=== PATIENT | male | born 1980 | race Caucasian/White ===

== ENCOUNTER 2017-11-14 17:35 | Emergency (ER) | END 2017-11-14 20:00 | disposition left against medical advice (07) ==

== ENCOUNTER 2017-11-14 23:29 | Emergency (ER) | END 2017-11-15 17:40 ==

== ENCOUNTER 2018-02-16 02:00 | Emergency (ER) | END 2018-02-16 02:15 | disposition left against medical advice (07) ==

== ENCOUNTER 2018-03-05 22:04 | Emergency (ER) | END 2018-03-06 18:53 | disposition home or self-care (01) ==

== ENCOUNTER 2018-09-01 17:09 | Emergency (ER) | END 2018-09-02 08:10 ==

== ENCOUNTER 2018-10-31 17:06 | Emergency (ER) | payer MEDICAID ==
[~2018-10-31] VITALS: Ht 162.6 cm; Wt 63.6 kg
[~2018-10-31 17:06] MED LIST: ARIP15TA3 PO
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
[2018-10-31 17:21] VITALS: Ht 162.6 cm; Wt 63.6 kg
[2018-10-31] MEDS ORDERED: FLUO20CA38 PO (17:35)
[2018-10-31] MEDS: DEXTROSE 5%-LR 1,000 ML IV SCH (18:38)
--- NOTE | 2018-10-31 18:54 | PSY ---
Date/Time of Note Date/Time of Note DATE: 10/31/18 TIME: 21:51 Psychiatric Subjective Eval Consent Pt consented to telemedicine: Yes Subjective Evaluation Patient location: emergency Chief Complaint: BIB RA 39: called 911 stating 'I want to harm myself'. History of present illness HPI: 38 yo male with ho etoh dependence as well as depression. Per nurse adn notes, pt called 911 stating Si and had been drinking, etoh level 445. In ED was very agitated and aggressive requiring IM meds and restraints due to severe agitation. attempted to speak with pt but he was too lethargic to speak. Past Psych Hx: unable to obtain due to lethargy PMHx: unable to obtain due to lethargy meds: unable to obtain due to lethargy All: unable to obtain due to lethargy MSE: lethargic, opens eyes but tries to sleep Imp: 38 yo male s/o suicidal statements and heavy etoh use, currently too lethargic for full exam for now recommend 5150 and further eval when he is able For moderate agitation Zyprexa 5mg po prn For severe agitation chlorpromazine 25mg im prn Alcohol withdrawal precautions with CIWA Daily thiamine 100mg po folate 1mg po mvi utox Medical history Problems Medical Problems: (1) Acute alcohol intoxication Status: Acute (2) Agitation Status: Acute (3) Alcohol abuse Status: Acute (4) Alcohol intoxication Status: Acute (5) Alcoholic intoxication Status: Acute (6) Depression Status: Acute (7) Laceration Status: Acute (8) Patient left after triage Status: Acute (9) Patient left without being seen Status: Acute (10) Patient left without being seen Status: Acute (11) Suicidal ideation Status: Acute (12) Suicidal ideation Status: Acute (13) Suicide threat or attempt Status: Acute Allergies: Coded Allergies: No Known Allergy (Unverified , 10/31/18) Psychiatric Objective Eval Mental Status Examination: Laboratory Results Laboratory Tests Test 10/31/18 17:31 White Blood Count 8.3 10^3/ul Red Blood Count 5.21 10^6/ul Hemoglobin 15.6 g/dl Hematocrit 46.7 % Mean Corpuscular Volume 89.6 fl Mean Corpuscular Hemoglobin 29.9 pg Mean Corpuscular Hemoglobin Concent 33.4 g/dl Red Cell Distribution Width 12.0 % Platelet Count 360 10^3/UL Mean Platelet Volume 9.1 fl Immature Granulocytes % 0.400 % Neutrophils % % Segmented Neutrophils % (Manual) 21 % Lymphocytes % % Lymphocytes % (Manual) 66 % Reactive Lymphocytes % (Manual) 2 % Monocytes % % Monocytes % (Manual) 4 % Eosinophils % % Eosinophils % (Manual) 2 % Basophils % % Basophils % (Manual) 2 % Metamyelocytes % (manual) 2 % Myelocytes % (Manual) 1 % Nucleated Red Blood Cells % 0.0 /100WBC Immature Granulocytes # 0.030 10^3/ul Neutrophils # 10^3/ul Lymphocytes (Manual) 5.4 10^3/ul Lymphocytes # 10^3/ul Reactive Lymphocytes # 0.1 10^3/ul Monocytes # 10^3/ul Monocytes # (Manual) 0.3 10^3/ul Eosinophils # 10^3/ul Basophils # 10^3/ul Basophils # (Manual) 0.1 10^3/ul Metamyelocytes # 0.1 10^3/ul Myelocytes # 0.0 10^3/ul Nucleated Red Blood Cells # 10^3/ul Platelet Estimate NORMAL Giant Platelets 1 % Sodium Level 145 mmol/L Potassium Level 3.8 mmol/L Chloride Level 106 mmol/L Carbon Dioxide Level 21 mmol/L Anion Gap 18 Blood Urea Nitrogen 15 mg/dl Creatinine 0.97 mg/dl Est Glomerular Filtrat Rate mL/min > 60 mL/min Glucose Level 101 mg/dl Calcium Level 9.2 mg/dl Total Bilirubin 0.2 mg/dl Direct Bilirubin 0.00 mg/dl Indirect Bilirubin 0.2 mg/dl Aspartate Amino Transf (AST/SGOT) 47 IU/L Alanine Aminotransferase (ALT/SGPT) 26 IU/L Alkaline Phosphatase 143 IU/L Total Protein 9.1 g/dl Albumin 5.0 g/dl Globulin 4.10 g/dl Albumin/Globulin Ratio 1.21 Salicylates Level < 1.0 mg/dl Acetaminophen Level < 10.0 ug/ml Ethyl Alcohol Level 445.0 mg/dl Assessment and Plan Recommendation/Plan Multiple antipsychotics: No Discharge Disposition: Other (Other) Legal Status: Place involuntary hold MADELINJANICE VALADEZ Oct 31, 2018 18:54
[2018-10-31] MEDS ORDERED: HALOPERIDOL 5 MG INJ IM ONE (19:00)
[2018-10-31] MEDS ORDERED: DIPHENHYDRAMINE 50 MG INJ IM ONE (19:00)
[2018-10-31] MEDS ORDERED: MULTIVITAMINS 10 ML, FOLIC ACID 1 MG, MAGNESIUM SULFATE 2 GM in SOD CHLORIDE 0.9% 1,000 ML IV ONE (19:30)
[2018-10-31] MEDS ORDERED: MULTIVITAMINS 10 ML, THIAMINE 100 MG, FOLIC ACID 1 MG, MAGNESIUM SULFATE 2 GM in SOD CH... IV ONE (19:30)
--- NOTE | 2018-11-01 05:05 | QN ---
Documentation Comment Psychiatric Observation Note: Indication: Alcohol intoxication and reported suicidal ideation Duration: Greater than 11 hours Family history: As documented in original HPI The patient was observed with serial exams over the above timeframe. The patient continued to be well-appearing, and observation continued without complication. All other needs have been met during emergency department stay. Routine psychiatric medications ordered: Not requested by telemetry medicine psychiatry Hold status: Telemetry medicine psychiatry has recommended 5150 hold Placement status: The patient is pending PMR T evaluation. The patient is intoxicated and could not be evaluated. Once the patient is more sober he will be reevaluated. If the patient is no longer suicidal repeat telemetry medicine psychiatry evaluation will be appropriate. If the patient is still suicidal then PMR T evaluation for placement would be appropriate. KAMARI ARBOLEDA MD Nov 01, 2018 05:05
[2018-11-01] MEDS: DEXTROSE 5%-LR 1,000 ML IV SCH ×4 (09:00→15:00)
--- NOTE | 2018-11-01 12:06 | PSY ---
Date/Time of Note Date/Time of Note DATE: 11/01/18 TIME: 15:01 Psychiatric Subjective Eval Consent Pt consented to telemedicine: Yes Subjective Evaluation Patient location: emergency Chief Complaint: BIB RA 39: called 911 stating 'I want to harm myself'. History of present illness HPI: 38 yo male with ho etoh dependence as well as depression. Per nurse and notes, yesterday pt called 911 stating Si and had been drinking, etoh level 445. In ED was very agitated and aggressive requiring IM meds and restraints due to severe agitation. This was per nurse. MD attempted to speak with pt yesterday but he was too lethargic to speak. MD was asked to speak with pt today. Via [employer], pt reports he does not remember why he is in ED. MD told pt hx and pt reports not remembering. He reports mild depression and denies si or psychosis Past Psych Hx: + ho psych admits and suicide attempts PMHx: denies meds: denies All: nkda MSE: casually groomed, somewhat uncooperative, dysthymic, restricted affect, organized, no delusions or avh denies si, impaired reliability Imp: 38 yo male s/p suicidal statements and heavy etoh use, reports he does not remember that Though pt denies SI, that he has impaired reliability, has been using substances, appears depressed, and reported Si within hours ago, suggests that there is not enough evidence to suggest that the pt is not an acute risk to self; recommend parallel hx from family to obtain more information about recent mental status and this episode; this will help determine disposition For moderate agitation Zyprexa 5mg po prn For severe agitation chlorpromazine 25mg im prn Alcohol withdrawal precautions with CIWA Daily thiamine 100mg po folate 1mg po mvi utox Medical history Problems Medical Problems: (1) Acute alcohol intoxication Status: Acute (2) Agitation Status: Acute (3) Alcohol abuse Status: Acute (4) Alcohol intoxication Status: Acute (5) Alcoholic intoxication Status: Acute (6) Depression Status: Acute (7) Laceration Status: Acute (8) Patient left after triage Status: Acute (9) Patient left without being seen Status: Acute (10) Patient left without being seen Status: Acute (11) Suicidal ideation Status: Acute (12) Suicidal ideation Status: Acute (13) Suicide threat or attempt Status: Acute Allergies: Coded Allergies: No Known Allergy (Unverified , 10/31/18) Psychiatric Objective Eval Mental Status Examination: Laboratory Results Laboratory Tests Test 10/31/18 17:31 11/01/18 05:28 White Blood Count 8.3 10^3/ul Red Blood Count 5.21 10^6/ul Hemoglobin 15.6 g/dl Hematocrit 46.7 % Mean Corpuscular Volume 89.6 fl Mean Corpuscular Hemoglobin 29.9 pg Mean Corpuscular Hemoglobin Concent 33.4 g/dl Red Cell Distribution Width 12.0 % Platelet Count 360 10^3/UL Mean Platelet Volume 9.1 fl Immature Granulocytes % 0.400 % Neutrophils % % Segmented Neutrophils % (Manual) 21 % Lymphocytes % % Lymphocytes % (Manual) 66 % Reactive Lymphocytes % (Manual) 2 % Monocytes % % Monocytes % (Manual) 4 % Eosinophils % % Eosinophils % (Manual) 2 % Basophils % % Basophils % (Manual) 2 % Metamyelocytes % (manual) 2 % Myelocytes % (Manual) 1 % Nucleated Red Blood Cells % 0.0 /100WBC Immature Granulocytes # 0.030 10^3/ul Neutrophils # 10^3/ul Lymphocytes (Manual) 5.4 10^3/ul Lymphocytes # 10^3/ul Reactive Lymphocytes # 0.1 10^3/ul Monocytes # 10^3/ul Monocytes # (Manual) 0.3 10^3/ul Eosinophils # 10^3/ul Basophils # 10^3/ul Basophils # (Manual) 0.1 10^3/ul Metamyelocytes # 0.1 10^3/ul Myelocytes # 0.0 10^3/ul Nucleated Red Blood Cells # 10^3/ul Platelet Estimate NORMAL Giant Platelets 1 % Sodium Level 145 mmol/L Potassium Level 3.8 mmol/L Chloride Level 106 mmol/L Carbon Dioxide Level 21 mmol/L Anion Gap 18 Blood Urea Nitrogen 15 mg/dl Creatinine 0.97 mg/dl Est Glomerular Filtrat Rate mL/min > 60 mL/min Glucose Level 101 mg/dl Calcium Level 9.2 mg/dl Total Bilirubin 0.2 mg/dl Direct Bilirubin 0.00 mg/dl Indirect Bilirubin 0.2 mg/dl Aspartate Amino Transf (AST/SGOT) 47 IU/L Alanine Aminotransferase (ALT/SGPT) 26 IU/L Alkaline Phosphatase 143 IU/L Total Protein 9.1 g/dl Albumin 5.0 g/dl Globulin 4.10 g/dl Albumin/Globulin Ratio 1.21 Salicylates Level < 1.0 mg/dl Acetaminophen Level < 10.0 ug/ml Ethyl Alcohol Level 445.0 mg/dl 251.0 mg/dl Assessment and Plan Recommendation/Plan Multiple antipsychotics: Yes Discharge Disposition: Other (Other) Legal Status: Continue involuntary hold JANICE YUSUF Nov 01, 2018 12:06
--- NOTE | 2018-11-01 16:04 | EN ---
Date/Time of Note Date/Time of Note DATE: 11/01/18 TIME: 16:02 ER Progress Note Psychiatric Observation Note: Indication: Alcohol intoxication and reported suicidal ideation Duration: Greater than 23 hours Family history: As documented in original HPI The patient was observed with serial exams over the above timeframe. The patient continued to be well-appearing, and observation continued without complication. All other needs have been met during emergency department stay. Routine psychiatric medications: Not requested by telemetry medicine psychiatry For moderate agitation: Zyprexa 5mg po prn For severe agitation: Chlorpromazine 25mg IM Hold status: Tele-psychiatry has recommended 5150 hold Placement status: The patient is pending PMR T evaluation. ALINA TEMPLE MD Nov 01, 2018 16:04
[2018-11-01] MEDS ORDERED: LORAZEPAM 2 MG INJ IV STA (21:41)
[2018-11-01] MEDS ORDERED: LORAZEPAM 1 MG TAB PO ONE (22:00)
[2018-11-02 10:43] VITALS: BP 138/87; PULSE 67; RESP 17
== END 2018-11-02 10:44 | disposition home or self-care (01) ==
LOC: E/R 17:06
DX: R45.851 Suicidal ideations (principal); F10.920 Alcohol use, unspecified with intoxication, uncomplicated; R45.1 Restlessness and agitation; R40.2242 Coma scale, best verbal response, confused conversation, at arrival to emergency department; R40.2362 Coma scale, best motor response, obeys commands, at arrival to emergency department; R40.2142 Coma scale, eyes open, spontaneous, at arrival to emergency department
CPT/HCPCS: 80053; 80307; 85025; 96372; 96374; J1200; J1630; J2060; J3475; J7030; J7121; Z7502; Z7610; J3411